=== PATIENT | male | born 1950 | race Two or more races ===

== ENCOUNTER 2018-08-03 11:02 | Emergency (ER) | payer MEDICARE, OTHER ==
[~2018-08-03] VITALS: Ht 167.6 cm; Wt 75.7 kg
[2018-08-03] MEDS ORDERED: TETANUS-DIPTH-ACEL PERTUSSIS 0.5ML SYRG IM ONE (11:30)
[2018-08-03] MEDS ORDERED: HYDROcodone-ACET 5/325MG TAB PO ONE (11:30)
[2018-08-03] MEDS ORDERED: LORazepam 0.5 MG TAB PO ONE (11:30)
[2018-08-03] MEDS ORDERED: cefTRIAXone SOD 1,000 MG VL ONE (12:07)
[2018-08-03] MEDS ORDERED: LIDOCAINE 1%HCL (LOCAL ANESTH) 10 ML MDV ONE (12:07)
[2018-08-03] MEDS ORDERED: cloNIDine HCL 0.1 MG TAB PO ONE (12:15)
[2018-08-03] MEDS ORDERED: cefTRIAXone W LIDOCAINE 1 GM IM IM ONE (12:15)
[2018-08-03 12:41] VITALS: BP 156/97
== END 2018-08-03 12:42 | disposition home or self-care (01) ==
LOC: ER 11:02
DX: S00.81XA Abrasion of other part of head, initial encounter (principal); X58.XXXA Exposure to other specified factors, initial encounter; Y93.01 Activity, walking, marching and hiking; Y92.89 Other specified places as the place of occurrence of the external cause; Y99.8 Other external cause status
CPT/HCPCS: 70450; 90471; 90715; 94761; 96372; 99284; J0696; J2001

== ENCOUNTER 2020-07-28 17:03 | Emergency (ER) | payer OTHER ==
[~2020-07-28] VITALS: Ht 167.6 cm; Wt 77.1 kg
[2020-07-28 17:22] VITALS: BP 180/102
[2020-07-28] MEDS ORDERED: APIXABAN 5 MG TAB PO SCH ×2 (22:00)
== END 2020-07-28 17:48 | disposition home or self-care (01) ==
LOC: ER 17:03
DX: I82.402 Acute embolism and thrombosis of unspecified deep veins of left lower extremity (principal); I10 Essential (primary) hypertension